=== PATIENT | female | born 1990 | race Two or more races ===

== ENCOUNTER 2021-01-12 20:06 | Emergency (ER) | payer OTHER ==
[2021-01-12 20:24] VITALS: BP 155/100; PULSE 65; TEMP 99.2; BMI 33.0
== END 2021-01-12 21:27 | disposition home or self-care (01) ==
LOC: FER 20:06
DX: M25.512 Pain in left shoulder (principal)
CPT/HCPCS: 93005; 99283-25

== ENCOUNTER 2021-08-09 00:20 | Emergency (ER) | payer SELFPAY ==
[2021-08-09 00:32] VITALS: TEMP 98.6; BMI 33.0
[2021-08-09] MEDS ORDERED: ALPRAZolam 0.25 MG TABLET ONE (00:44)
[2021-08-09] MEDS ORDERED: ALPRAZolam 1 MG TABLET PO STA (00:48)
[2021-08-09 02:09] VITALS: BP 152/95; PULSE 66
== END 2021-08-09 02:17 | disposition home or self-care (01) ==
LOC: FER 00:20
DX: F41.9 Anxiety disorder, unspecified (principal); I10 Essential (primary) hypertension
CPT/HCPCS: 99283-25

== ENCOUNTER 2023-12-11 00:33 | Emergency (ER) | payer OTHER ==
[2023-12-11] MEDS ORDERED: IBUPROFEN 400 MG TABLET (FP) PO ONE (00:54)
[2023-12-11] MEDS ORDERED: ACETAMINOPHEN 325 MG TABLET (FP) ONE (00:54)
[2023-12-11 01:06] VITALS: PULSE 71; RESP 16; TEMP 98; BMI 35.2
[2023-12-11] MEDS: IBUPROFEN 400 MG TABLET (FP) PO ONE (01:06)
[2023-12-11] MEDS: ACETAMINOPHEN 325 MG TABLET (FP) PO ONE (01:06)
[2023-12-11 01:31] VITALS: BP 175/94
== END 2023-12-11 01:48 | disposition home or self-care (01) ==
LOC: FER 00:33
DX: R51.9 Headache, unspecified (principal); I10 Essential (primary) hypertension; R09.81 Nasal congestion; H04.219 Epiphora due to excess lacrimation, unspecified lacrimal gland
CPT/HCPCS: 99283-25